=== PATIENT | female | born 1950 | race Caucasian/White ===

== ENCOUNTER 2019-05-22 18:08 | Inpatient (IN) ==
[2019-05-22 18:42] LABS: Basophils # 0.1 10*3/uL (0.0-0.2); Basophils % 0.7 % (0.0-0.8); Eosinophils # 0.2 10*3/uL (0.0-0.87); Eosinophils % 0.9 % (0.00-10.9); Hemoglobin 15.4 GM/DL (12.0-16.0); Immature Granulocytes % 1.5 %; Immature Granulocytes Absolute 0.28 #; Lymphocytes # 4.1 10*3/uL (1.4-4.0); Lymphocytes % 22.1 % (21.3-54.2); Mean Corpuscular HGB Conc 32.8 GM/DL (32-36); Mean Corpuscular Volume 95.9 FL (87-102); Mean Platelet Volume 9.3 FL (9.6-12.0); Monocytes % 9.9 % (1.7-12.7); Neutrophils % 64.9 % (38.7-73.9); Platelet Count 195 T/CUMM (130-400); Red Cell Distribution Width 13.7 % (9.3-17.3); White Blood Count 18.7 T/CUMM (4-12)
[2019-05-22 18:52] LABS: PT Patient Result 11.3 SECS (9.6-12.2); Partial Thromboplastin Time 24.3 SECS (20.8-36.0)
[2019-05-22 19:04] LABS: Albumin 3.2 G/DL (3.4-5.0); Bilirubin,Total 0.8 MG/DL (0.2-1.0); Calcium 8.6 MG/DL (8.5-10.1); Osmolality,Calculated 287.5 MOS/KG (273-304); Total Protein 7.3 G/DL (6.4-8.3)
[2019-05-22] MEDS ORDERED: ENOXAPARIN 100 MG/ML SYRINGE SUBCUT STA (19:12)
[2019-05-22] MEDS ORDERED: SODIUM CHLORIDE 0.9% 1,000 ML IV STA (19:12)
[2019-05-22 20:13] LABS: Apearance,Urine CLOUDY (Clear); Bacteria,Urine Occasional /HPF (Few); Bilirubin,Urine Negative (Negative); Blood, Urine Moderate mg/dL (Negative); Glucose,Urine (UA) Negative (Negative); Ketones,Urine Negative (Negative); Mucus,Urine Many /LPF (Occasional); Nitrite,Urine Negative (Negative); Protein,Urine 30 MG/DL; RBC,Urine 30 /HPF (0-4); Squamous Epithelial Cell,Urine Many /HPF (0-10); Urine Color Amber (Yellow); Urine Specific Gravity 1.019 (1.001-1.035); Urine Urobilinogen < 2.0 EU/DL (0.2-1.0); WBC,Urine 1084 /HPF (0-6)
[2019-05-22] MEDS ORDERED: LEVOFLOXACIN INJ 500 MG in PREMIX 1 EACH IV STA (20:25)
[2019-05-22] MEDS ORDERED: ACETAMINOPHEN 325 MG TABLET PO PRN (23:02)
[2019-05-22] MEDS ORDERED: DOCUSATE SODIUM 100 MG CAPSULE PO PRN (23:02)
[2019-05-22] MEDS ORDERED: diphenhydrAMINE CAP 25 MG CAPSULE PO PRN (23:02)
[2019-05-22] MEDS ORDERED: ALBUTEROL/IPRATROPIUM 3 ML NEB RESP TX PRN (23:02)
[2019-05-22] MEDS ORDERED: ONDANSETRON 4 MG/2 ML VIAL IV PRN (23:02)
[2019-05-22] MEDS ORDERED: GLUCAGON 1 MG VIAL IM PRN (23:11)
[2019-05-22] MEDS ORDERED: DEXTROSE 50% 25 GM/50 ML SYRINGE IV PRN (23:11)
[2019-05-23] MEDS: SODIUM CHLORIDE 0.9% 1,000 ML IV SCH ×2 (01:54→15:03)
[2019-05-23] MEDS: INSULIN LISPRO 100 UNIT/ML SUBCUT SCH ×5 (01:55→21:38)
[2019-05-23] MEDS: RANITIDINE 150 MG TABLET PO SCH ×3 (02:12→21:36)
[2019-05-23 05:23] LABS: Basophils # 0.1 10*3/uL (0.0-0.2); Basophils % 0.6 % (0.0-0.8); Eosinophils # 0.2 10*3/uL (0.0-0.87); Eosinophils % 1.3 % (0.00-10.9); Hematocrit 41.9 VOL% (35.7-47.0); Hemoglobin 13.7 GM/DL (12.0-16.0); Immature Granulocytes % 1.2 %; Immature Granulocytes Absolute 0.19 #; Lymphocytes # 5.3 10*3/uL (1.4-4.0); Lymphocytes % 31.9 % (21.3-54.2); Mean Corpuscular HGB Conc 32.7 GM/DL (32-36); Mean Corpuscular Volume 95.4 FL (87-102); Mean Platelet Volume 9.3 FL (9.6-12.0); Monocytes % 10.7 % (1.7-12.7); Neutrophils % 54.3 % (38.7-73.9); Platelet Count 191 T/CUMM (130-400); Red Blood Count 4.39 MC/CUMM (3.8-5.5); Red Cell Distribution Width 13.6 % (9.3-17.3); White Blood Count 16.5 T/CUMM (4-12)
[2019-05-23 05:44] LABS: Calcium 8.2 MG/DL (8.5-10.1); Osmolality,Calculated 289.1 MOS/KG (273-304); Risk Ratio 3.17; VLDL CHOLESTEROL 26.4 MG/DL
[2019-05-23] MEDS: predniSONE 10 MG TABLET PO SCH (10:12)
[2019-05-23] MEDS: CETIRIZINE 10 MG TABLET PO SCH (10:13)
[2019-05-23] MEDS: MONTELUKAST 10 MG TABLET PO SCH (10:13)
[2019-05-23] MEDS ORDERED: ENOXAPARIN 100 MG/ML SYRINGE SUBCUT SCH (21:00)
[2019-05-23] MEDS: APIXABAN 5 MG TABLET PO SCH (21:36)
[2019-05-24 05:04] LABS: Basophils # 0.1 10*3/uL (0.0-0.2); Basophils % 0.6 % (0.0-0.8); Eosinophils # 0.2 10*3/uL (0.0-0.87); Eosinophils % 1.2 % (0.00-10.9); Hematocrit 37.6 VOL% (35.7-47.0); Hemoglobin 12.4 GM/DL (12.0-16.0); Immature Granulocytes % 0.9 %; Immature Granulocytes Absolute 0.16 #; Lymphocytes # 5.2 10*3/uL (1.4-4.0); Mean Corpuscular Volume 95.2 FL (87-102); Mean Platelet Volume 9.4 FL (9.6-12.0); Monocytes % 9.5 % (1.7-12.7); Neutrophils % 58.8 % (38.7-73.9); Platelet Count 202 T/CUMM (130-400); Red Blood Count 3.95 MC/CUMM (3.8-5.5); Red Cell Distribution Width 13.4 % (9.3-17.3); White Blood Count 17.8 T/CUMM (4-12)
[2019-05-24 05:35] LABS: Osmolality,Calculated 288.1 MOS/KG (273-304)
[2019-05-24] MEDS: SODIUM CHLORIDE 0.9% 1,000 ML IV SCH ×3 (05:51→20:10)
[2019-05-24] MEDS: INSULIN LISPRO 100 UNIT/ML SUBCUT SCH ×4 (08:05→22:28)
[2019-05-24] MEDS: RANITIDINE 150 MG TABLET PO SCH ×2 (09:07→21:32)
[2019-05-24] MEDS: APIXABAN 5 MG TABLET PO SCH ×2 (09:07→21:32)
[2019-05-24] MEDS: CETIRIZINE 10 MG TABLET PO SCH (09:08)
[2019-05-24] MEDS: predniSONE 10 MG TABLET PO SCH (09:08)
[2019-05-24] MEDS: MONTELUKAST 10 MG TABLET PO SCH (09:08)
[2019-05-24] MEDS ORDERED: FLUCONAZOLE 150 MG TABLET PO ONE (11:25)
[2019-05-24] MEDS ORDERED: LEVOFLOXACIN INJ 750 MG in PREMIX 1 EACH IV SCH (21:00)
[2019-05-25 05:59] LABS: Basophils # 0.1 10*3/uL (0.0-0.2); Basophils % 0.7 % (0.0-0.8); Eosinophils # 0.3 10*3/uL (0.0-0.87); Eosinophils % 1.8 % (0.00-10.9); Hematocrit 36.6 VOL% (35.7-47.0); Immature Granulocytes Absolute 0.17 #; Lymphocytes # 5.7 10*3/uL (1.4-4.0); Lymphocytes % 34.7 % (21.3-54.2); Mean Corpuscular HGB Conc 32.8 GM/DL (32-36); Mean Corpuscular Volume 96.8 FL (87-102); Monocytes % 9.7 % (1.7-12.7); Neutrophils % 52.1 % (38.7-73.9); Platelet Count 201 T/CUMM (130-400); Red Blood Count 3.78 MC/CUMM (3.8-5.5); Red Cell Distribution Width 13.4 % (9.3-17.3); White Blood Count 16.5 T/CUMM (4-12)
[2019-05-25] MEDS: SODIUM CHLORIDE 0.9% 1,000 ML IV SCH (06:07)
[2019-05-25 06:33] LABS: Calcium 7.8 MG/DL (8.5-10.1); Osmolality,Calculated 289.1 MOS/KG (273-304)
[2019-05-25] MEDS: INSULIN LISPRO 100 UNIT/ML SUBCUT SCH ×2 (08:02→12:09)
[2019-05-25] MEDS ORDERED: ERGOCALCIFEROL 50,000 UNIT CAPSULE PO SCH (09:00)
[2019-05-25] MEDS: MONTELUKAST 10 MG TABLET PO SCH (09:08)
[2019-05-25] MEDS: APIXABAN 5 MG TABLET PO SCH (09:08)
[2019-05-25] MEDS: CETIRIZINE 10 MG TABLET PO SCH (09:09)
[2019-05-25] MEDS: predniSONE 10 MG TABLET PO SCH (09:09)
[2019-05-25] MEDS: RANITIDINE 150 MG TABLET PO SCH (09:09)
[2019-05-25 12:15] VITALS: BP 120/55
== END 2019-05-25 16:25 | disposition home health service (06) | DRG 176 ==
LOC: N.EDINP 18:08 → N.ED 18:08 → SUATTDRO 22:51 → N.EDINP 05-23 00:18 → N.2W 05-23 02:07 → N.2E 05-23 15:31 → SUPCPDRO 05-24 14:27
PROVIDERS: ADMIT Internal Medicine; ATTEND Family Medicine

== ENCOUNTER 2022-04-23 12:33 | Observation (INO) ==
[2022-04-23] MEDS ORDERED: SODIUM CHLORIDE 0.9% 500 ML IV STA (13:10)
[2022-04-23] MEDS ORDERED: DILTIAZEM 25 MG/5 ML VIAL IV STA (13:13)
[2022-04-23 13:21] LABS: Basophils # 0.1 10*3/uL (0.0-0.2); Basophils % 0.8 % (0.0-0.8); Eosinophils # 0.1 10*3/uL (0.0-0.87); Eosinophils % 1.3 % (0.00-10.9); Hematocrit 47.4 VOL% (35.7-47.0); Hemoglobin 15.5 GM/DL (12.0-16.0); Immature Granulocytes Absolute 0.11 #; Lymphocytes # 4.4 10*3/uL (1.4-4.0); Mean Corpuscular HGB Conc 32.7 GM/DL (32-36); Mean Corpuscular Volume 97.5 FL (87-102); Mean Platelet Volume 9.1 FL (9.6-12.0); Monocytes # 1.3 10*3/uL (0.11-0.8); Monocytes % 11.6 % (1.7-12.7); Neutrophils % 45.3 % (38.7-73.9); Platelet Count 362 T/CUMM (130-400); Red Blood Count 4.86 MC/CUMM (3.8-5.5); Red Cell Distribution Width 14.5 % (9.3-17.3); White Blood Count 11.1 T/CUMM (4-12)
[2022-04-23 13:41] LABS: Albumin 3.1 G/DL (3.4-5.0); Bilirubin,Total 0.9 MG/DL (0.20-1.00); Calcium 9.3 MG/DL (8.5-10.1); Osmolality,Calculated 282.4 MOS/KG (273-304); Potassium 3.6 MMOL/L (3.5-5.1); Thyroid Stimulating Hormone 4.38 uIU/ml (0.358-3.74); Total Protein 6.7 G/DL (6.4-8.2)
[2022-04-23] MEDS ORDERED: DEXTROSE 10% 250 ML BAG IV PRN (14:25)
[2022-04-23] MEDS ORDERED: ACETAMINOPHEN 325 MG TABLET PO PRN (14:25)
[2022-04-23] MEDS ORDERED: GLUCAGON 1 MG VIAL IM PRN (14:25)
[2022-04-23] MEDS ORDERED: ONDANSETRON 4 MG/2 ML VIAL IV PRN (14:25)
[2022-04-23] MEDS ORDERED: ZALEPLON 5 MG CAPSULE PO PRN (14:25)
[2022-04-23] MEDS ORDERED: METOPROLOL TARTRATE 50 MG TABLET PO STA (14:45)
[2022-04-23] MEDS ORDERED: predniSONE 20 MG TABLET PO SCH (15:05)
[2022-04-23] MEDS: SODIUM CHLORIDE 0.9% 1,000 ML IV SCH (15:06)
[2022-04-23 16:27] LABS: Free T4 (Free Thyroxine) 1.68 NG/DL (0.76-1.46)
[2022-04-23] MEDS: INSULIN LISPRO 100 UNIT/ML SUBCUT SCH ×2 (16:41→21:56)
[2022-04-23] MEDS: METOPROLOL TARTRATE 50 MG TABLET PO SCH (21:53)
[2022-04-23] MEDS: APIXABAN 5 MG TABLET PO SCH (21:53)
[2022-04-24] MEDS: SODIUM CHLORIDE 0.9% 1,000 ML IV SCH (05:20)
[2022-04-24 05:21] LABS: Basophils # 0.1 10*3/uL (0.0-0.2); Basophils % 0.8 % (0.0-0.8); Eosinophils # 0.2 10*3/uL (0.0-0.87); Eosinophils % 1.6 % (0.00-10.9); Hematocrit 39.4 VOL% (35.7-47.0); Hemoglobin 12.8 GM/DL (12.0-16.0); Immature Granulocytes % 1.1 %; Immature Granulocytes Absolute 0.13 #; Lymphocytes # 4.7 10*3/uL (1.4-4.0); Lymphocytes % 39.9 % (21.3-54.2); Mean Corpuscular HGB Conc 32.5 GM/DL (32-36); Mean Platelet Volume 9.3 FL (9.6-12.0); Monocytes # 1.7 10*3/uL (0.11-0.8); Monocytes % 14.2 % (1.7-12.7); Neutrophils % 42.4 % (38.7-73.9); Platelet Count 300 T/CUMM (130-400); Red Blood Count 4.02 MC/CUMM (3.8-5.5); Red Cell Distribution Width 14.4 % (9.3-17.3); White Blood Count 11.9 T/CUMM (4-12)
[2022-04-24 06:00] LABS: Albumin 2.3 G/DL (3.4-5.0); Bilirubin,Total 0.8 MG/DL (0.20-1.00); Calcium 8.2 MG/DL (8.5-10.1); Osmolality,Calculated 284.1 MOS/KG (273-304); Potassium 3.1 MMOL/L (3.5-5.1); Total Protein 5.6 G/DL (6.4-8.2)
[2022-04-24] MEDS ORDERED: CYANOCOBALAMIN 1000 MCG/1 ML VIAL IM SCH (08:30)
[2022-04-24 08:37] LABS: Bacteria,Urine Many /HPF (Few); Bilirubin,Urine Negative (Negative); Blood, Urine Large mg/dL (Negative); Glucose,Urine (UA) Negative (Negative); Ketones,Urine Negative (Negative); Nitrite,Urine Positive (Negative); Protein,Urine 30 mg/dL (Negative); RBC,Urine 8 /HPF (0-4); Squamous Epithelial Cell,Urine Occasional /HPF (0-10); Urine Appearance Clear (Clear); Urine Color Yellow (Yellow); Urine Urobilinogen 0.2 eU/dL (<2.0); Urine pH 5.5 (4.5-8.0)
[2022-04-24] MEDS ORDERED: PANTOPRAZOLE 40 MG TABLET PO SCH (09:00)
[2022-04-24] MEDS ORDERED: ASCORBIC ACID 500 MG TABLET PO SCH (09:00)
[2022-04-24] MEDS ORDERED: INFLUENZA VIRUS VACCINE 0.5 ML SYRINGE IM ONE (09:00)
[2022-04-24] MEDS ORDERED: predniSONE 5 MG TABLET PO SCH (09:00)
[2022-04-24] MEDS ORDERED: HYDROXYCHLOROQUINE 200 MG TABLET PO SCH (09:00)
[2022-04-24] MEDS ORDERED: CETIRIZINE 10 MG TABLET PO SCH (09:00)
[2022-04-24] MEDS ORDERED: CHOLECALCIFEROL 5,000 UNIT TABLET PO SCH (09:00)
[2022-04-24] MEDS: INSULIN LISPRO 100 UNIT/ML SUBCUT SCH ×2 (09:08→12:28)
[2022-04-24] MEDS: POTASSIUM CHLORIDE 20 MEQ TABLET PO SCH ×4 (09:13→13:16)
[2022-04-24] MEDS ORDERED: MAGNESIUM SULF RIDER 2 GM/50 ML PREMIX IV ONE (09:17)
[2022-04-24] MEDS: METOPROLOL TARTRATE 50 MG TABLET PO SCH (09:18)
[2022-04-24] MEDS: APIXABAN 5 MG TABLET PO SCH (09:19)
[2022-04-24] MEDS ORDERED: CIPROFLOXACIN 250 MG TABLET PO ONE (10:46)
[2022-04-24 12:10] VITALS: BP 143/69
[2022-04-24] MEDS ORDERED: SIMVASTATIN 40 MG TABLET PO SCH (21:00)
[2022-04-24] MEDS ORDERED: MONTELUKAST 10 MG TABLET PO SCH (21:00)
[2022-04-29] MEDS ORDERED: DULAGLUTIDE 1.5 MG/0.5 ML SUBCUT SCH (08:11)
== END 2022-04-24 14:30 | disposition home or self-care (01) ==
LOC: N.ED 12:33 → N.EDINP 12:33 → SUATTDRO 14:24 → N.TELES 17:41
PROVIDERS: ADMIT Emergency Medicine; ATTEND Internal Medicine